=== PATIENT | female | born 1980 | race Caucasian/White ===

== ENCOUNTER 2018-04-07 20:34 | Emergency (ER) | payer BC, OTHER ==
[~2018-04-07] VITALS: Ht 165.1 cm; Wt 108.9 kg
== END 2018-04-07 21:27 | disposition home or self-care (01) ==
LOC: ER 20:34
DX: M79.661 Pain in right lower leg (principal); L03.115 Cellulitis of right lower limb
CPT/HCPCS: 99282

== ENCOUNTER 2025-02-01 11:21 | Emergency (ER) | payer SELFPAY ==
[~2025-02-01] VITALS: Ht 165.1 cm; Wt 93.0 kg
[2025-02-01 11:31] VITALS: TEMP 98.2
[2025-02-01 11:56] LABS: BASOPHILS % 0.2 % (0.0-1.0); EOSINOPHILS % 1.2 % (0.0-6.0); LYMPHOCYTES % 16.7 % (18.0-39.1); MONOCYTES % 5.5 % (4.4-11.3); NEUTROPHILS % 75.7 % (38.7-80.0); RED CELL DISTRIBUTION WIDTH 14.1 % (11.7-14.4)
[2025-02-01 12:16] VITALS: PULSE 64; RESP 18
[2025-02-01 12:21] LABS: EST GLOMERULAR FILTRATION RATE 98.0 ML/MIN (>=60)
[2025-02-01] MEDS ORDERED: IOPAMIDOL 370 MG/ML 100 ML INFUS..BTL INJ ONE (12:31)
[2025-02-01] MEDS ORDERED: AZITHROMYCIN250 MG PO (14:13)
[2025-02-01] MEDS ORDERED: AMOX TR-K CLV1 EAC2 PO (14:13)
[2025-02-01 14:19] VITALS: BP 120/84; PULSE 67; RESP 18; O2SAT 98
== END 2025-02-01 14:20 | disposition home or self-care (01) ==
LOC: ER 11:24
DX: R05.9 Cough, unspecified (principal); J18.9 Pneumonia, unspecified organism; J04.0 Acute laryngitis
CPT/HCPCS: 36415; 70491; 80053; 84702; 85025; 99283; Q9967